=== PATIENT | female | born 1970 | race Caucasian/White ===

== ENCOUNTER 2018-10-01 15:23 | Outpatient (CLI) | payer OTHER ==
--- NOTE | 2018-10-04 08:35 | Mammography Report ---
Reason: SCREENING MAMMO Procedure Date: 10/01/2018 Accession Number: [id number] / [id number] Procedure: [place] - Screening Mammo w/Antolin CPT Code: FULL RESULT: EXAM: Screening Mammo w/Antolin DATE: 10/01/2018 4:00 PM CLINICAL HISTORY: Routine screening. No personal or family history of breast cancer reported. TECHNIQUE: Bilateral CC and MLO views were obtained. COMPARISON: 08/15/2016 through 02/04/2013 FINDINGS: The breasts demonstrate heterogeneously dense fibroglandular parenchyma bilaterally. Stable biopsy marker in the 12:00 right breast middle to posterior depth. There are no suspicious masses, calcifications or areas of distortion. IMPRESSION: Benign findings RECOMMENDATION: Routine annual screening unless otherwise clinically indicated. BI-RADS CATEGORY 2: Benign findings STANDARD QUALIFYING STATEMENTS: 1. This examination was not reviewed with the aid of Computer-Aided Detection (CAD). 2. A negative or benign imaging report should not preclude biopsy if clinically suspicious findings are present. 3. Dense breasts may obscure an underlying neoplasm. 4. This examination was reviewed with the aid of 3D breast imaging (tomosynthesis).
== END 2018-10-01 15:24 | disposition home or self-care (01) ==
LOC: DI 15:23
DX: Z12.31 Encounter for screening mammogram for malignant neoplasm of breast (principal)
CPT/HCPCS: 77063; 77067

== ENCOUNTER 2019-11-04 10:07 | Outpatient (CLI) | payer OTHER | END 2019-11-04 10:08 | disposition home or self-care (01) | LOC: DI.N 10:07 | PROVIDERS: ATTEND Internal Medicine | DX: Z53.9 Procedure and treatment not carried out, unspecified reason (principal) ==

== ENCOUNTER 2019-12-02 15:41 | Outpatient (CLI) | payer OTHER ==
--- NOTE | 2019-12-05 13:28 | Mammography Report ---
Reason: ROUTINE MAMMO Procedure Date: 12/02/2019 Accession Number: [id number] / [id number] Procedure: [place] - Screening Mammo w/Antolin CPT Code: Final Report FULL RESULT: EXAM: Screening Mammo w/Antolin DATE: 12/02/2019 4:28 PM CLINICAL HISTORY: Screening encounter. History of benign right breast biopsy. TECHNIQUE: (B) - Bilateral CC and MLO views were obtained. COMPARISON: 12/01/2017 through 12/27/2009. PARENCHYMAL PATTERN: (D) - The breast(s) demonstrate(s) heterogeneously dense fibroglandular parenchyma. FINDINGS: A biopsy marker in the right breast is again seen. There are no suspicious masses, calcifications, or areas of distortion. IMPRESSION: Benign findings. BI-RADS category 2. RECOMMENDATION: (ANNUAL) - Recommend routine annual screening mammography. BI-RADS CATEGORY: (2) - Benign Findings. STANDARD QUALIFYING STATEMENTS: 1. This examination was not reviewed with the aid of Computer-Aided Detection (CAD). 2. A negative or benign imaging report should not preclude biopsy if clinically suspicious findings are present. 3. Dense breasts may obscure an underlying neoplasm. 4. This examination was reviewed with the aid of 3D breast imaging (tomosynthesis).
== END 2019-12-02 15:42 | disposition home or self-care (01) ==
LOC: DI 15:41
PROVIDERS: ATTEND Internal Medicine
DX: Z12.31 Encounter for screening mammogram for malignant neoplasm of breast (principal)
CPT/HCPCS: 77063; 77067